=== PATIENT | male | born 1985 | race Caucasian/White ===

== ENCOUNTER 2023-05-26 17:25 | Emergency (ER) | payer SELFPAY ==
[2023-05-26 17:46] VITALS: BP 131/92; PULSE 102; RESP 18; TEMP 36.8; O2SAT 100
--- NOTE | 2023-05-26 19:24 | PC.NURSE ---
Patient stated to staff that he did not want to be seen anymore and proceeded to walk out to triage to call his father for a ride.
== END 2023-05-26 19:24 | disposition left against medical advice (07) ==
LOC: ANHED 19:30
DX: R07.81 Pleurodynia (principal)
CPT/HCPCS: 99199

== ENCOUNTER 2023-06-11 19:37 | Emergency (ER) | payer SELFPAY ==
[2023-06-11 19:48] VITALS: BP 146/116; PULSE 95; RESP 18; TEMP 36.3; O2SAT 100
--- NOTE | 2023-06-11 19:55 | PC.NURSE ---
Pt states he has had thought of self harm in the past 3 months, denies plan or intection to act. Denies giving away possessions or writing letter to family/friends. Discussed with ED charge, pt is Low-Risk level 1 on assessment. Pt is no harm to self at this time.
[2023-06-11 22:26] VITALS: BP 133/94; PULSE 80; RESP 16; TEMP 36.6; O2SAT 98
--- NOTE | 2023-06-11 22:26 | PC.NURSE ---
Patient states that he is a recovering addict and that he last used fentanyl a day and a half ago and ICE a month and a half ago
--- NOTE | 2023-06-11 22:28 | PC.NURSE ---
Patient states that he is hearing voices but denies the voices are telling him to hurt himself or others. Patient states the voices know what he is doing.
[2023-06-11 23:33] VITALS: BP 119/90; PULSE 95; RESP 16; O2SAT 98
--- NOTE | 2023-06-12 01:23 | ED.GENADULT ---
HPI - General Adult General Chief complaint: Unspecified Stated complaint: lice Time Seen by Provider: 06/12/23 00:09 Source: patient Mode of arrival: ambulatory Limitations: no limitations History of Present Illness HPI narrative: Patient is a 38-year-old male who presents the ED with concern for lice infestation. Patient is homeless. He reports he has been dealing with lice for the last couple weeks. He states the lice have began to invade into his ears bilaterally. He states he was seen at [facility] a couple of days ago and prescribed the shampoo. He was also Rx'd clindamycin for an ear infection. He states the shampoo took care of the lice in his hair, but he is still concerned for lice in his ears. He states he has been digging at his ears trying to remove the lice. Denies ear drainage. Denies fevers. Patient admits to using methamphetamines and fentanyl. Related Data Allergies Allergy/AdvReac Type Severity Reaction Status Date / Time No Known Allergies Allergy Unverified 12/21/16 00:59 Review of Systems Review of Systems: CONSTITUTIONAL: Denies fever, chills, or sweats. ENT: See HPI. CARDIOVASCULAR: Denies chest pain, palpitations, or edema. RESPIRATORY: Denies cough or dyspnea. GASTROINTESTINAL: Denies abdominal pain, nausea, vomiting. SKIN: See HPI MUSCULOSKELETAL: Denies back pain, joint pain, or myalgia. All systems reviewed & are unremarkable except as noted in HPI and below PMFSH Social History Social History Substance use type: opiates and methamphetamine Exam Narrative: GENERAL: Mildly unkempt/disheveled, thin, non-toxic, in no acute distress. HEAD: Normocephalic, atraumatic. ENT: R ear pinna with scattered scabs. Large wound to R antihelix/shelby with purulent material/crusting. No abscess. bilateral EACs significantly swollen and erythematous. Difficult to visualize either TM. no drainage from either EAC. Scattered scabs to nose and chin. NECK: Supple. No adenopathy, no masses. RESPIRATORY: Airway patent, respirations nonlabored. CARDIOVASCULAR: Regular rate and rhythm. MUSCULOSKELETAL: Moves all extremities. Strength/ROM intact without gross deformities. SKIN: Warm, dry, normal color. No rashes. NEURO: A&O X3. Speech clear. Cranial nerves II-XII grossly intact. Steady gait. No ataxic movements. PSYCHIATRIC: Paranoid. Normal interaction. Course Vital Signs Vital signs: Vital Signs Temperature 97.3 F L 06/11/23 19:48 Pulse Rate 95 06/11/23 19:48 Respiratory Rate 18 06/11/23 19:48 Blood Pressure 146/116 H 06/11/23 19:48 Pulse Oximetry 100 06/11/23 19:48 Oxygen Delivery Room Air 06/11/23 19:48 Temperature 97.8 F 06/11/23 22:26 Pulse Rate 100 06/12/23 01:49 Respiratory Rate 16 06/12/23 01:49 Blood Pressure 124/94 H 06/12/23 01:49 Pulse Oximetry 100 06/12/23 01:49 Oxygen Delivery Room Air 06/11/23 19:48 Medical Decision Making MDM Narrative Medical decision making narrative: Patient homeless, presented to ED with concern for lice infestation in ears. Recently utilized permethrin shampoo which he states cleared the lice from his hair. Also started on clindamycin from outside hospital. Exam consistent with bilateral otitis externa. Right ear with large purulent wound to shelby and antihelix from patient picking at ear. He does report history of methamphetamine abuse. advised patient to continue clindamycin that he was previously prescribed. Will prescribe ofloxacin ear drops for AOE. Will also provide patient with prescription for permethrin as he is adamant he needs to be treated for lice. Patient in agreement w/ plan. I offered the patient something to eat and offered homeless [facility] resources and patient agreed. upon telling patient we would be able to discharge him soon the patient stated, I haven't seen the psychiatrist yet. he proceeds
[2023-06-12 01:49] VITALS: BP 124/94; PULSE 100; RESP 16; O2SAT 100
[2023-06-12] MEDS: OFLOXACIN 0.3% OPHTH SOLN 5 ML BTL 3 DROP EACH EAR (02:10)
[2023-06-12 02:33] LABS: Appearance Urine Clear (Clear); Bilirubin Urine Negative (Negative); Blood Urine Negative (Negative); Color Urine Yellow (Yellow); Glucose Urine UA Negative (Negative); Ketones Urine Negative (Negative); Leukocyte Esterase Ur Negative LEU/UL (Negative); Nitrate Urine Negative (Negative); Protein Urine Negative (Negative); Specific Grav Ur 1.016 (1.001-1.035)
--- NOTE | 2023-06-12 02:36 | PC.NURSE ---
Patient moved into room 15
--- NOTE | 2023-06-12 02:37 | PC.NURSE ---
Attempted to obtain blood from patient with a 23 gauge butterfly needle. Attempt was unsuccessful.
[2023-06-12 02:49] LABS: Add Urine Microscopic? NO; Amphetamine Screen Urine Positive (Negative); Barbiturate Screen Urine Negative (Negative); Benzodiazepines Screen Urine Negative (Negative); Cannabinoid Screen Urine Negative (Negative); Cocaine Screen Urine Negative (Negative); Methadone Screen Urine Negative (Negative); Opiate Screen Urine Negative (Negative); Phencyclidine Screen Urine Negative (Negative)
--- NOTE | 2023-06-12 03:05 | PC.NURSE ---
Patient initially stated to the EDP NEFTALI Burgess that he was suicidal and wanted to hurt himself. EDP Jenifer then ordered blood, urine, and covid test. When it came time to obtain blood for the second attempt patient stated that he did not want to get stuck with needles. Patient was informed by nursing staff, EDP NEFTALI Burgess, and EDP Dr. Bailey that we need blood to get crisis here to evaluate him. Patient then told Dr. Bailey that he was not suicidal and just wanted usp and resource information.
[2023-06-12 03:06] LABS: SARS-CoV-2 RNA PCR Negative (Negative)
== END 2023-06-12 03:10 | disposition home or self-care (01) ==
PROVIDERS: Emergency Provider Physician Assistant
DX: H60.503 Unspecified acute noninfective otitis externa, bilateral (principal); Z59.00 Homelessness unspecified; F15.90 Other stimulant use, unspecified, uncomplicated; Z11.52 Encounter for screening for COVID-19
CPT/HCPCS: 80307; 81003; 87635; 99283; A9270

== ENCOUNTER 2023-07-18 16:41 | Emergency (ER) | payer SELFPAY | END 2023-07-18 17:04 | disposition left against medical advice (07) | PROVIDERS: Emergency Provider Emergency Medicine | DX: Z53.21 Procedure and treatment not carried out due to patient leaving prior to being seen by health care provider (principal) | CPT/HCPCS: 99199 ==

== ENCOUNTER 2023-07-29 14:32 | Emergency (ER) | payer SELFPAY ==
--- NOTE | ~2023-07-29 | CT_ITS ---
EXAMINATION: CT abdomen pelvis w con DATE: 07/29/2023 15:22 INDICATION: Right lower quadrant abdominal pain. TECHNIQUE: Computed tomography (CT) of the abdomen and pelvis was performed with 100 mL Omnipaque 350 intravenous contrast. Automated exposure control and iterative reconstruction technique were employe d. The dose-length product was 569.43 mGy-cm. COMPARISON: None. FINDINGS: The visualized portions of the lung bases are clear without pneumonia or pleural effusion. The heart size is normal. No pericardial effusion. There are cysts in the liver measuring up to 5 mm. The gallbladder is contracted. The spleen, pancreas, adrenal glands, and kidneys are normal. There i s a right inguinal hernia containing fat. There are no dilated loops of bowel. The appendix is normal . There are no pathologically enlarged lymph nodes. There is no free intraperitoneal fluid. There is a 2.7 cm nonaggressive lytic lesion in right femoral neck, likely benign. There is mild thoracic and lumbar spondylosis. IMPRESSION: 1. Right inguinal hernia containing fat. 2. 2.7 cm nonaggressive lytic lesion in right femoral neck, likely benign. The differential diagnosis includes subchondral cyst, synovial cyst, unicameral bone cyst, and fibrous dysplasia. Reviewed, dictated and finalized at location E. TIPPING MACHINE TENDER IMPRESSION: 1. Right inguinal hernia containing fat. 2. 2.7 cm nonaggressive lytic lesion in right femoral neck, likely benign. The differential diagnosis includes subchondral cyst, synovial cyst, unicameral bon e cyst, and fibrous dysplasia.
[2023-07-29 14:41] VITALS: BP 155/121; PULSE 125; RESP 20; TEMP 36.8; O2SAT 99
[2023-07-29 15:17] LABS: Estimated CRCL calculation 86 ml/min; Estimated Glomerular Filt Rate > 60
[2023-07-29 15:26] LABS: Basophils Percent Auto 0.2 % (0.2-1.2); Eosinophils Absolute Auto 0.1 K/mm3 (0-0.3); Eosinophils Percent Auto 1.1 % (0-4.4); Hematocrit 40.7 % (42.0-52.0); Hemoglobin 13.4 g/dL (14.0-18.0); Immature Granulocyte Absolute 0.03 K/mm3 (0.00-0.031); Immature Granulocyte Percent A 0.3 % (0-0.5); Lymphocytes Absolute Auto 1.19 K/mm3 (0.9-3.2); Lymphocytes Percent Auto 13.5 % (18.3-44.2); Mean Corpuscular HGB Conc 32.9 g/dl (32-36); Mean Corpuscular Hemoglobin 28.4 pg (26-34); Mean Corpuscular Volume 86.2 fl (80-100); Mean Platelet Volume 10.3 fl (7.4-10.4); Monocytes Absolute Auto 0.7 K/mm3 (0.1-0.6); Monocytes Percent Auto 8.2 % (2.6-8.5); Neutrophils Absolute Auto 6.7 K/mm3 (1.3-6.7); Neutrophils Percent Auto 76.7 % (45.5-73.1); Platelet Count Result 283 k/mm3 (150-375); Red Blood Count 4.72 M/mm3 (4.6-6.20); Red Cell Distribution Width 13.8 % (11.5-14.5); White Blood Count 8.8 K/mm3 (4.5-10.0)
[2023-07-29 15:37] LABS: Ethanol < 10 mg/dL (<10)
[2023-07-29 15:55] LABS: Alanine Aminotransferase 17 U/L (6-50); Albumin Level 4.1 g/dL (3.5-5.1); Alkaline Phosphatase 83 U/L (38-126); Anion Gap 6 mmol/L (8-16); Aspartate Amino Transferase 33 U/L (17-59); Bilirubin,Total 0.5 mg/dL (0.2-1.3); Blood Urea Nitrogen 17 mg/dL (9-20); Calcium 9.5 mg/dL (8.4-10.2); Carbon Dioxide 26 mmol/L (22-30); Chloride 108 mmol/L (98-107); Estimated CRCL calculation 95 ml/min; Estimated Glomerular Filt Rate > 60; Glucose 105 mg/dL (65-110); Potassium 4.2 mmol/L (3.4-5.0); Sodium 140 mmol/L (137-145)
[2023-07-29 15:55] LABS: Appearance Urine Turbid (Clear); Bacteria Urine None Seen /hpf; Bilirubin Urine Negative (Negative); Blood Urine Negative (Negative); Color Urine Yellow (Yellow); Glucose Urine UA Negative (Negative); Ketones Urine Negative (Negative); Leukocyte Esterase Ur Negative LEU/UL (Negative); Nitrate Urine Negative (Negative); Non Pathogenic Casts 0-2; Protein Urine Negative (Negative); RBC Urine 0-2 /hpf (0-2); Specific Grav Ur 1.021 (1.001-1.035); Squamous Epithelial Cell Urine None seen /hpf (Few); Urobilinogen Urine 0.2 mg/dL (<2.0); WBC Urine 0-5 /hpf
[2023-07-29] MEDS: SODIUM CHLORIDE 0.9% IV 1,000 ML 999 ML IV CONT (16:00)
--- NOTE | 2023-07-29 16:00 | PC.NURSE ---
pt resting quietly on stretcher. no distress noted. requested white soda. when drink provided pt inquired what time dinner is served.
[2023-07-29 16:05] LABS: Add Urine Microscopic? YES
[2023-07-29 16:23] LABS: Thyroid Stimulating Hormone 0.276 uIU/mL (0.465-4.680)
[2023-07-29 16:24] LABS: Amphetamine Screen Urine Negative (Negative); Barbiturate Screen Urine Negative (Negative); Benzodiazepines Screen Urine Negative (Negative); Cannabinoid Screen Urine Positive (Negative); Cocaine Screen Urine Negative (Negative); Methadone Screen Urine Negative (Negative); Opiate Screen Urine Negative (Negative); Phencyclidine Screen Urine Negative (Negative)
--- NOTE | 2023-07-29 16:24 | ED.GENADULT ---
HPI - General Adult General Chief complaint: Unspecified Stated complaint: hernia, paranoia Time Seen by Provider: 07/29/23 14:42 History of Present Illness HPI narrative: Patient is a 38-year-old male who presents ER with lower abdominal pain. Began this afternoon while he was [place] halfway [place] [employer]. He is concerned may be related to hernia he has. He reports normal bowel movement earlier today. No fevers or chills or sweats. No nausea or vomiting. Patient is very anxious. Denies any drug use. No SI/HI. Patient did arrive with a pocket knife but it has been taken by fleas. He is not in custody. Denies previous issues with abdominal pain. Related Data Allergies Allergy/AdvReac Type Severity Reaction Status Date / Time bee venom protein (honey bee) Allergy Unknown Verified 07/29/23 14:49 [bees] antipsychotics AdvReac Unknown Uncoded 07/29/23 14:49 Review of Systems Review of Systems: All systems reviewed & are unremarkable except as noted in HPI and below ENT: Reports system reviewed and no additional complaints, except as documented Cardiovascular: Cardiovascular: Reports no additional cardiovascular complaints Respiratory: Respiratory: Reports no additional respiratory complaints Gastrointestinal: Gastrointestinal: Reports abdominal pain, Denies constipation, Denies diarrhea and Denies nausea Genitourinary: Genitourinary: Reports no additional male genitourinary complaints PMFSH Past Medical History Medical History (Updated 07/29/23 @ 16:37 by Jerome Mendiola MD) Healthy adult male Surgical History Surgical History (Updated 07/29/23 @ 16:37 by Jerome Mendiola MD) No pertinent past surgical history Social History Social History Substance use type: opiates and methamphetamine Exam Narrative: GENERAL: Anxious-appearing, well-nourished, and in no acute distress. HEAD: Normocephalic, atraumatic. ENT: Mucous membranes moist. CHEST: Clear to auscultation. No respiratory distress. HEART: Regular rate and rhythm. Normal peripheral pulses. ABDOMEN: Soft, mildly tender right lower quadrant, nondistended, normal active bowel sounds. no bulging hernia. EXTREMITIES: Normal range of motion. No edema. SKIN: Warm, dry, no rash. NEURO: Alert and oriented x3. PSYCH: Normal mood and affect. no SI/HI. Course Course Emergency Course: Patient has urinated 900 mL. He is receiving some IV fluid. Pain improved. Informed of imaging results. No previous history of having a cyst on his femur that he is aware of, he has been educated about this. [place] appropriate for discharge home. Vital Signs Vital signs: Vital Signs Temperature 98.3 F 07/29/23 14:41 Pulse Rate 125 H 07/29/23 14:41 Respiratory Rate 20 07/29/23 14:41 Blood Pressure 155/121 H 07/29/23 14:41 Pulse Oximetry 99 07/29/23 14:41 Oxygen Delivery Room Air 07/29/23 14:41 Temperature 98.3 F 07/29/23 14:41 Pulse Rate 125 H 07/29/23 14:41 Respiratory Rate 20 07/29/23 14:41 Blood Pressure 155/121 H 07/29/23 14:41 Pulse Oximetry 99 07/29/23 14:41 Oxygen Delivery Room Air 07/29/23 14:41 Medical Decision Making Vital Signs Vital Signs: Vital Signs Temperature 98.3 F 07/29/23 14:41 Pulse Rate 125 H 07/29/23 14:41 Respiratory Rate 07/29/23 14:41 Blood Pressure 155/121 H 07/29/23 14:41 Pulse Oximetry 99 07/29/23 14:41 Oxygen Delivery Room Air 07/29/23 14:41 Temperature 98.3 F 07/29/23 14:41 Pulse Rate 125 H 07/29/23 14:41 Respiratory Rate 07/29/23 14:41 Blood Pressure 155/121 H 07/29/23 14:41 Pulse Oximetry 99 07/29/23 14:41 Oxygen Delivery Room Air 07/29/23 14:41 Lab Data 07/29/23 15:10 07/29/23 15:16 Labs: Lab Results 07/29/23 07/29/23 07/29/23 Range/Units 15:10 15:16 15:36 WBC 8.8 (4.5-10.0) K/mm3 R
[2023-07-29] MEDS: ACETAMINOPHEN 325 MG TABLET 650 MG (16:57)
== END 2023-07-29 16:50 | disposition home or self-care (01) ==
PROVIDERS: Emergency Provider Emergency Medicine
DX: R10.30 Lower abdominal pain, unspecified (principal); K40.90 Unilateral inguinal hernia, without obstruction or gangrene, not specified as recurrent; M89.9 Disorder of bone, unspecified
CPT/HCPCS: 74177; 80053; 80307; 81001; 84443; 85025; 96360; 99284; A9270; J7030; Q9967

== ENCOUNTER 2023-07-30 21:49 | Emergency (ER) | payer SELFPAY ==
[2023-07-30] MEDS: HALOPERIDOL LACTATE 5 MG/ML VIAL (21:53)
[2023-07-30] MEDS: LORazepam INJ (*CRX) 2 MG/ML VIAL (21:53)
[2023-07-30] MEDS: diphenhydrAMINE HCl INJ 50 MG/ML VIAL (21:53)
--- NOTE | 2023-07-30 21:55 | ED.GENADULT ---
HPI - General Adult General Chief complaint: Psychiatric Symptoms <Geo Kearns MD - Last Filed: 07/31/23 01:45> Stated complaint: etoh, combative <Geo Kearns MD - Last Filed: 07/31/23 01:45> Time Seen by Provider: 07/30/23 21:51 <Geo Kearns MD - Last Filed: 07/31/23 01:45> History of Present Illness HPI narrative: patient is a 38-year-old gentleman who presents emergency department with chief complaint of alcohol intoxication and needs medical clearance The patient was arrested due to intoxication the patient was mine bottles of fireball and stealing overall from other establishment and chugging it. <Geo Kearns MD - Last Filed: 07/31/23 01:45> Related Data Allergies/adverse reactions: Allergies Allergy/AdvReac Type Severity Reaction Status Date / Time bee venom protein (honey bee) Allergy Unknown Verified 07/29/23 14:49 [bees] antipsychotics AdvReac Unknown Uncoded 07/29/23 14:49 <Geo Kearns MD - Last Filed: 07/31/23 01:45> Review of Systems Review of Systems: A 10 system review of systems was completed on the patient and is negative except for what is stated in the HPI. Nursing and ancillary documentation was reviewed. <Geo Kearns MD - Last Filed: 07/31/23 01:45> PMFSH Past Medical History Medical History: Medical History Healthy adult male <Geo Kearns MD - Last Filed: 07/31/23 01:45> Surgical History Surgical History: Surgical History No pertinent past surgical history <Geo Kearns MD - Last Filed: 07/31/23 01:45> Social History Social History: Social History Substance use type: unknown <Geo Kearns MD - Last Filed: 07/31/23 01:45> Exam Narrative: GENERAL: Well-appearing, well-nourished, and in no acute distress. HEAD: Normocephalic, atraumatic. EYES: PERRLA and EOMI. ENT: Nares clear, no rhinorrhea or epistaxis. Mucous membranes moist. NECK: Supple. CHEST: Clear to auscultation. No respiratory distress. HEART: Regular rate and rhythm. No murmur heard. Normal peripheral pulses. ABDOMEN: Soft, nontender, nondistended, normal active bowel sounds. EXTREMITIES: Normal range of motion. No edema. SKIN: Warm, dry, no rash. NEURO: No focal deficits. Alert and oriented x3. highly intoxicated poorly cooperative PSYCH: Normal mood and affect. <Geo Kearns MD - Last Filed: 07/31/23 01:45> Course Course Emergency Course: Patient resting comfortably. He is awake alert and orient x3. He is refusing repeat lab testing. He is clinically sober. Will be discharged as he reports <Jerome Mendiola MD - Last Filed: 07/31/23 08:43> Vital Signs Vital signs: Vital Signs Temperature 97.2 F L 07/30/23 22:35 Pulse Rate 115 H 07/30/23 22:35 Respiratory Rate 18 07/30/23 22:35 Blood Pressure 127/72 07/30/23 22:35 Pulse Oximetry 95 07/30/23 22:35 Oxygen Delivery Room Air 07/30/23 22:35 Temperature 97.2 F L 07/30/23 22:35 Pulse Rate 102 H 07/30/23 23:51 Respiratory Rate 20 07/30/23 23:51 Blood Pressure 127/72 07/30/23 22:35 Pulse Oximetry 97 07/30/23 23:51 Oxygen Delivery Room Air 07/30/23 22:35 <Geo Kearns MD - Last Filed: 07/31/23 01:45> Vital Signs Temperature 97.2 F L 07/30/23 22:35 Pulse Rate 115 H 07/30/23 22:35 Respiratory Rate 18 07/30/23 22:35 Blood Pressure 127/72 07/30/23 22:35 Pulse Oximetry 95 07/30/23 22:35 Oxygen Delivery Room Air 07/30/23 22:35 Temperature 97.2 F L 07/30/23 22:35 Pulse Rate 102 H 07/30/23 23:51 Respiratory Rate 20 07/30/23 23:51 Blood Pressure 127/72 07/30/23 22:35 Pulse Oximetry 97 01
--- NOTE | 2023-07-30 22:01 | ECG_ITS ---
Measurements Intervals [place] Rate: 112 P: 78 CA: 110 QRS: 31 QRSD: 89 T: 65 QT: 336 QTc: 459 Interpretive Statements SINUS TACHYCARDIA WITH SHORT CA INTERVAL ST ELEVATION IN ANT/INF LEADS- PROBABLY EARLY REPOLARIZATION ABNORMAL ECG NO PREVIOUS ECG AVAILABLE FOR COMPARISON Electronically Signed On 07-31-2023 6:36:29 PHYSICAL THERAPY DIRECTOR by Roosevelt Gaffney D.O.
[2023-07-30 22:35] VITALS: BP 127/72; PULSE 115; RESP 18; TEMP 36.2; O2SAT 95
[2023-07-30 22:48] LABS: Basophils Percent Auto 0.5 % (0.2-1.2); Eosinophils Absolute Auto 0.2 K/mm3 (0-0.3); Eosinophils Percent Auto 1.9 % (0-4.4); Hematocrit 42.6 % (42.0-52.0); Hemoglobin 13.5 g/dL (14.0-18.0); Immature Granulocyte Absolute 0.06 K/mm3 (0.00-0.031); Immature Granulocyte Percent A 0.7 % (0-0.5); Lymphocytes Absolute Auto 2.28 K/mm3 (0.9-3.2); Lymphocytes Percent Auto 25.8 % (18.3-44.2); Mean Corpuscular HGB Conc 31.7 g/dl (32-36); Mean Corpuscular Hemoglobin 28.1 pg (26-34); Mean Corpuscular Volume 88.8 fl (80-100); Mean Platelet Volume 10.2 fl (7.4-10.4); Monocytes Absolute Auto 0.6 K/mm3 (0.1-0.6); Monocytes Percent Auto 7.2 % (2.6-8.5); Neutrophils Absolute Auto 5.7 K/mm3 (1.3-6.7); Neutrophils Percent Auto 63.9 % (45.5-73.1); Platelet Count Result 301 k/mm3 (150-375); Red Cell Distribution Width 13.9 % (11.5-14.5); White Blood Count 8.8 K/mm3 (4.5-10.0)
--- NOTE | 2023-07-30 22:49 | PC.NURSE ---
Upon arrival to ED, pt was belligerent and combative to PD/ hospital staff/ security/ and EMS. EDP Dr. Kearns educated pt about how to appropriately manage his behaviors. pt began yelling and screaming at staff/ Pd/ security. Pt then started to get into EDP Dr. Kearns's face stated I am the fucking boss of this shit, don't tell me what to do . Pt was in handcuffs upon arrival. Pt started to resist PD holding him down on cot. Pt then began to become more aggressive. EDP Dr. Kearns verbally ordered 5mg of halidol/ 2mg of ativan/ 50mg of benedryll IM for pt. This Rn confirmed route/ dose/ pt/ medications with edp Dr. Kearns using closed loop communication. EDP confirmed routes/ medications/ dosages/ and pt. EDP verbally ordered violent restraints. This RN educated pt the importance of acting appropriately for the safety of himself and staff members. Pt verbally confirmed and let this RN collect blood work/ urine sample/ nasal swab. Security staff members and PD were still at bedside. Pt was uncuffed and changed into green scrub top with his own personal bottoms. Pt denied HI/ SI multiple times to this RN. Pt denied anything hurting. Pt stated he was at [facility] due to drinking to much and then PD picked me up . This RN did not apply violent restraints to pt. After this RN completed EKG, pt began to rest with eyes closed with visible chest rise and fall.
[2023-07-30 22:50] LABS: Appearance Urine Clear (Clear); Bilirubin Urine Negative (Negative); Blood Urine Negative (Negative); Color Urine Yellow (Yellow); Glucose Urine UA Negative (Negative); Ketones Urine Negative (Negative); Leukocyte Esterase Ur Negative LEU/UL (Negative); Nitrate Urine Negative (Negative); Protein Urine Negative (Negative); Specific Grav Ur 1.005 (1.001-1.035); Urobilinogen Urine 0.2 mg/dL (<2.0); pH Urine 5.5 (5.0-9.0)
[2023-07-30 23:04] LABS: Add Urine Microscopic? NO; Alanine Aminotransferase 17 U/L (6-50); Albumin Level 4.3 g/dL (3.5-5.1); Alkaline Phosphatase 97 U/L (38-126); Anion Gap 14 mmol/L (8-16); Aspartate Amino Transferase 31 U/L (17-59); Bilirubin,Total 0.3 mg/dL (0.2-1.3); Blood Urea Nitrogen 15 mg/dL (9-20); Calcium 9.8 mg/dL (8.4-10.2); Carbon Dioxide 20 mmol/L (22-30); Chloride 110 mmol/L (98-107); Estimated CRCL calculation 87 ml/min; Estimated Glomerular Filt Rate > 60; Glucose 100 mg/dL (65-110); Potassium 3.4 mmol/L (3.4-5.0); Sodium 144 mmol/L (137-145)
[2023-07-30 23:14] LABS: Acetaminophen < 10 ug/mL (10-30); Salicylate < 1.0 mg/dL (2-20)
[2023-07-30 23:25] LABS: Ethanol 301 mg/dL (<10)
[2023-07-30 23:26] LABS: Influenza A QL RT-PCR Negative (Negative); Influenza B QL RT-PCR Negative (Negative); RSV RNA, RT-PCR Negative (Negative); SARS-CoV-2 RNA PCR Negative (Negative)
[2023-07-30 23:47] LABS: Amphetamine Screen Urine Negative (Negative); Barbiturate Screen Urine Negative (Negative); Benzodiazepines Screen Urine Negative (Negative); Cannabinoid Screen Urine Negative (Negative); Cocaine Screen Urine Negative (Negative); Methadone Screen Urine Negative (Negative); Opiate Screen Urine Negative (Negative); Phencyclidine Screen Urine Negative (Negative)
[2023-07-30 23:51] VITALS: PULSE 102; RESP 20; O2SAT 97
--- NOTE | 2023-07-31 07:34 | PC.NURSE ---
assumed care of pt. pt sleeping on stretcher, no distress noted at this time
[2023-07-31 08:54] VITALS: BP 142/93; PULSE 123; RESP 16; TEMP 36.8; O2SAT 99
--- NOTE | 2023-07-31 08:54 | PC.NURSE ---
color laboratory technician in room to draw repeat etoh level, pt refusing to have blood drawn. edp aware
[2023-07-31 09:06] VITALS: BP 142/93; PULSE 123; RESP 16; TEMP 36.8; O2SAT 99
== END 2023-07-31 09:17 | disposition home or self-care (01) ==
PROVIDERS: Emergency Provider Emergency Medicine
DX: F10.129 Alcohol abuse with intoxication, unspecified (principal); Y90.8 Blood alcohol level of 240 mg/100 ml or more; Z11.52 Encounter for screening for COVID-19
CPT/HCPCS: 36415; 80053; 80307; 81003; 84443; 85025; 87637; 93005; 96374; 96375; 99284; J1200; J1630; J2060

== ENCOUNTER 2023-08-08 20:59 | Emergency (ER) | payer SELFPAY ==
[2023-08-08 20:50] VITALS: BP 190/122; PULSE 134; RESP 20; TEMP 36.8; O2SAT 100
[2023-08-08 21:52] LABS: Basophils Percent Auto 0.6 % (0.2-1.2); Eosinophils Percent Auto 0.4 % (0-4.4); Hematocrit 47.9 % (42.0-52.0); Hemoglobin 15.3 g/dL (14.0-18.0); Immature Granulocyte Absolute 0.03 K/mm3 (0.00-0.031); Immature Granulocyte Percent A 0.4 % (0-0.5); Lymphocytes Absolute Auto 1.07 K/mm3 (0.9-3.2); Lymphocytes Percent Auto 14.7 % (18.3-44.2); Mean Corpuscular HGB Conc 31.9 g/dl (32-36); Mean Corpuscular Hemoglobin 27.9 pg (26-34); Mean Corpuscular Volume 87.4 fl (80-100); Mean Platelet Volume 9.4 fl (7.4-10.4); Monocytes Absolute Auto 0.6 K/mm3 (0.1-0.6); Monocytes Percent Auto 8.8 % (2.6-8.5); Neutrophils Absolute Auto 5.5 K/mm3 (1.3-6.7); Neutrophils Percent Auto 75.1 % (45.5-73.1); Platelet Count Result 328 k/mm3 (150-375); Red Blood Count 5.48 M/mm3 (4.6-6.20); Red Cell Distribution Width 14.2 % (11.5-14.5); White Blood Count 7.3 K/mm3 (4.5-10.0)
[2023-08-08 22:03] LABS: Ethanol 16 mg/dL (<10)
[2023-08-08] MEDS: LORazepam INJ (*CRX) 2 MG/ML VIAL 1 MG IM (22:15)
--- NOTE | 2023-08-08 23:16 | ED.GENADULT ---
HPI - General Adult General Chief complaint: Unspecified Stated complaint: stroke like s&s History of Present Illness HPI narrative: Patient is a 38-year-old gentleman who presents emergency department with chief complaint of high blood pressure and tachycardia. The patient reports that he took some ice today and is feeling as though his blood pressure is high and his heart rate side. Patient states that he has not used any methamphetamine denies suicidal or homicidal ideation. The patient reports no alcohol use today. Related Data Allergies Allergy/AdvReac Type Severity Reaction Status Date / Time bee venom protein (honey bee) Allergy Unknown Verified 07/29/23 14:49 [bees] antipsychotics AdvReac Unknown Uncoded 07/29/23 14:49 Review of Systems Review of Systems: A 10 system review of systems was completed on the patient and is negative except for what is stated in the HPI. Nursing and ancillary documentation was reviewed. [facility] Past Medical History Medical History Healthy adult male Surgical History Surgical History No pertinent past surgical history Social History Social History Substance use type: unknown Exam Narrative: GENERAL: Well-appearing, well-nourished, and in no acute distress. HEAD: Normocephalic, atraumatic. EYES: PERRLA and EOMI. ENT: Nares clear, no rhinorrhea or epistaxis. Mucous membranes moist. NECK: Supple. CHEST: Clear to auscultation. No respiratory distress. HEART: Tachycardic rate and rhythm. No murmur heard. Normal peripheral pulses. ABDOMEN: Soft, nontender, nondistended, normal active bowel sounds. EXTREMITIES: Normal range of motion. No edema. SKIN: Warm, dry, no rash. NEURO: No focal deficits. Alert and oriented x3. PSYCH: Anxious mood and affect. Denies suicidal or homicidal ideation Course Vital Signs Vital signs: Vital Signs Temperature 36.8 C 08/08/23 20:50 Pulse Rate 134 H 08/08/23 20:50 Respiratory Rate 20 08/08/23 20:50 Blood Pressure 190/122 H 08/08/23 20:50 Pulse Oximetry 100 08/08/23 20:50 Oxygen Delivery Room Air 08/08/23 20:50 Temperature 36.8 C 08/08/23 20:50 Pulse Rate 134 H 08/08/23 20:50 Respiratory Rate 20 08/08/23 20:50 Blood Pressure 190/122 H 08/08/23 20:50 Pulse Oximetry 08/08/23 20:50 Oxygen Delivery Room Air 08/08/23 20:50 Medical Decision Making MDM Narrative Medical decision making narrative: Patient received a dose of Ativan in the emergency department is alert oriented and laboratory studies were ordered on the patient. While waiting for the laboratory studies the patient decided that he was feeling better and would like to leave the patient is currently alert oriented not suicidal or not homicidal walking with Ez clearance steady gait Vital Signs Vital Signs: Vital Signs Temperature 36.8 C 08/08/23 20:50 Pulse Rate 134 H 08/08/23 20:50 Respiratory Rate 20 08/08/23 20:50 Blood Pressure 190/122 H 08/08/23 20:50 Pulse Oximetry 08/08/23 20:50 Oxygen Delivery Room Air 08/08/23 20:50 Temperature 36.8 C 08/08/23 20:50 Pulse Rate 134 H 08/08/23 20:50 Respiratory Rate 20 08/08/23 20:50 Blood Pressure 190/122 H 08/08/23 20:50 Pulse Oximetry 08/08/23 20:50 Oxygen Delivery Room Air 08/08/23 20:50 Lab Data 08/08/23 21:44 08/08/23 21:44 Labs: Lab Results 08/08/23 08/08/23 08/08/23 Range/Units 21:44 21:44 21:44 WBC 7.3 (4.5-10.0) K/mm3 RBC 5.48 (4.6-6.20) M/mm3 Hgb 15.3 (14.0-18.0) g/dL Hct 47.9 (42.0-52.0) % MCV 87.4 (80-100) fl MCH 27.9 (26-34) pg MCHC 31.9 L (32-36) g/dl RDW 14.2 (11.5-14.5) % Plt Count 328 (150-375) k/mm3 MPV 9.4 (7.4-10.4) fl Im
== END 2023-08-08 23:17 | disposition left against medical advice (07) ==
LOC: ANHED 21:36
PROVIDERS: Emergency Provider Emergency Medicine
DX: F15.10 Other stimulant abuse, uncomplicated (principal)
CPT/HCPCS: 36415; 80053; 80307; 82550; 85025; 96372; 99283; J2060

== ENCOUNTER 2023-08-20 08:48 | Emergency (ER) | payer SELFPAY ==
[2023-08-20 08:41] VITALS: BP 172/104; PULSE 109; RESP 14; TEMP 36.9; O2SAT 100
--- NOTE | 2023-08-20 09:17 | ED.EYEPROB ---
HPI - Eye Problem General Chief complaint: Eye Problems Stated complaint: right eye swelling Time Seen by Provider: 08/20/23 08:55 Source: patient and old records reviewed Mode of arrival: ambulatory Limitations: no limitations History of Present Illness HPI Narrative: Patient is a 38-year-old male, with pmh of homelessness, psychiatric illness, and polysubstance abuse, who presents to the ED with c/o trent eye redness/drainage. Patient reports he woke up with morning with trent eye redness, drainage, FB sensation, worse on the R eye. Has developed some swelling of R eyelid. Reports slight blurry vision in his right eye due to the drainage. Denies vision loss. Denies severe pain or pain with eye movements. Patient has been seen in our ED previously and concerned for lice infestation. He states he feels as though a louse is in his R eye. Related Data Allergies Allergy/AdvReac Type Severity Reaction Status Date / Time bee venom protein (honey bee) Allergy Anaphylaxis Verified 08/20/23 08:54 [bees] haloperidol [From Haldol] Allergy Unknown Verified 08/20/23 08:54 Review of Systems Review of Systems: CONSTITUTIONAL: Denies fever, chills, or sweats. ENT: See HPI. NEUROLOGIC: Denies headache, dizziness, numbness, or weakness. All systems reviewed & are unremarkable except as noted in HPI and below Exam Narrative: GENERAL: Disheveled appearing, well-nourished, in no acute distress. HEAD: Normocephalic, atraumatic. EYES: Trent conjunctival injection, minimal on L, worse on R. R eye with serous and yellow drainage, mild swelling of eyelids. Some crusting present. R eye sclera with very mild chemosis. No subconjunctival hemorrhage. No FB noted. Pupils are equal and reactive to light. Patient eating cheetos in ED bed and frequently touching eyes. RESPIRATORY: Airway patent, respirations nonlabored CARDIOVASCULAR: Regular rate and rhythm MUSCULOSKELETAL: Moves all extremities. No gross deformities. SKIN: Warm, dry, normal color. NEURO: A&O X3. Speech clear. PSYCHIATRIC: Appropriate mood and affect. Normal interaction. Course Vital Signs Vital signs: Vital Signs Temperature 98.5 F 08/20/23 08:41 Pulse Rate 109 H 08/20/23 08:41 Respiratory Rate 14 08/20/23 08:41 Blood Pressure 172/104 H 08/20/23 08:41 Pulse Oximetry 100 08/20/23 08:41 Oxygen Delivery Room Air 08/20/23 08:41 Temperature 97.8 F 08/20/23 09:47 Pulse Rate 112 H 08/20/23 09:47 Respiratory Rate 14 08/20/23 09:47 Blood Pressure 152/97 H 08/20/23 09:47 Pulse Oximetry 100 08/20/23 09:47 Oxygen Delivery Room Air 08/20/23 08:41 MDM - Eye Problem MDM Narrative Medical decision making narrative: Exam consistent with bilateral conjunctivitis, likely bacterial, worse on right eye. Fluorescein staining and Wood's lamp examination did not reveal any conjunctival or corneal abrasions, no foreign bodies noted on exam. Pupils are reactive and equal bilaterally. No vision loss or significant vision changes. No other neurologic deficits. Patient will be started on ofloxacin eye drops, given 1st dose in the ED. Advised to avoid rubbing or touching eyes. Given ophthalmology information for follow-up. Given return precautions. Discharged in stable condition. Medical Records Attestation: I reviewed the patient's medical records. Discharge Plan Discharge Clinical Impression: Conjunctivitis Qualifiers: Conjunctivitis type: acute Acute conjunctivitis type: bacterial Laterality: bilateral Qualified Code(s): H10.33 - Unspecified acute conjunctivitis, bilateral Patient Disposition: Home, Self-Care Condition: Stable Instructions: Antibiotic Form, Eye Foreign Body (ED), Conjunctivitis (ED) Additional Instructions: Utilize antibiotic eyedrops as prescribed. Avoid touching, rubbing, or putting anything into eye. You may apply warm compresses to face/eyes. Follow-up with eye doctor for further evaluation. Prescriptions: N
[2023-08-20 09:38] VITALS: BP 152/97; PULSE 112; RESP 14; TEMP 36.6; O2SAT 100
[2023-08-20] MEDS: OFLOXACIN 0.3% OPHTH SOLN 5 ML BTL 1 DROP EACH EYE (09:43)
[2023-08-20 09:47] VITALS: BP 152/97; PULSE 112; RESP 14; TEMP 36.6; O2SAT 100
== END 2023-08-20 09:49 | disposition home or self-care (01) ==
LOC: ANHED 09:24
PROVIDERS: Emergency Provider Physician Assistant
DX: H10.33 Unspecified acute conjunctivitis, bilateral (principal)
CPT/HCPCS: 99283; A9270

== ENCOUNTER 2023-09-10 20:19 | Emergency (ER) | payer MEDICAID, SELFPAY ==
--- NOTE | ~2023-09-10 | XR_ITS ---
EXAMINATION: XR elbow RT min 3V DATE: 09/10/2023 22:13 INDICATION: Right elbow pain. TECHNIQUE: 4 views of right elbow were obtained. COMPARISON: Right forearm radiographs 09/19/2004 FINDINGS: Bone alignment is normal. No fracture. There is mild elbow joint osteoarthritis. No elbow j oint effusion. IMPRESSION: 1. Mild elbow joint osteoarthritis. Reviewed, dictated and finalized at location [facility]. [facility] [employer]
[2023-09-10 20:31] VITALS: BP 149/108; PULSE 93; RESP 18; TEMP 36.8; O2SAT 100
--- NOTE | 2023-09-10 21:18 | PC.NURSE ---
Pt asking [employer] intern[employer] how much longer will it be as he is in a lot of pain. RN explained that there are no current open beds but that they would get him back as soon as possible. Pt observed wheeling the wheel chair back to the other end of waiting room using bilateral arms to wheel.
--- NOTE | 2023-09-10 21:23 | PC.NURSE ---
Pt observed taking a white pill from a visitor of another patient. Unknown what pill was.
--- NOTE | 2023-09-10 21:35 | PC.NURSE ---
Visitor showed security bottle that she gave pt a pill from and it was tizanidine.
[2023-09-10] MEDS: IBUPROFEN 400 MG TABLET 800 MG PO (22:12)
[2023-09-10] MEDS: ACETAMINOPHEN 500 MG TABLET 1000 MG PO (22:13)
--- NOTE | 2023-09-10 22:18 | ED.GENADULT ---
HPI - General Adult General Chief complaint: Extremity Injury, Upper Stated complaint: rt arm pain Time Seen by Provider: 09/10/23 21:52 History of Present Illness HPI narrative: This is a 38-year-old male presenting ED with chief complaint right arm pain. Patient says he was arm wrestling while in [facility] earlier today and developed pain in his right tricep. He has not taken anything for pain. Says he has shooting pains into his hand. No other complaints. Related Data Allergies Allergy/AdvReac Type Severity Reaction Status Date / Time bee venom protein (honey bee) Allergy Unknown Verified 09/10/23 21:42 [bees] antipsychotics AdvReac Unknown Uncoded 07/29/23 14:49 PMFSH Past Medical History Medical History Healthy adult male Surgical History Surgical History No pertinent past surgical history Social History Social History Substance use type: unknown Exam Narrative: APPEARANCE: No apparent distress. Head: atraumatic. EYES: EOMI, NOSE: Atraumatic NECK: Trachea midline RESPIRATORY: No increased rate of breathing CARDIOVASCULAR: RRR, ABDOMINAL: Reducible right inguinal hernia MUSCULOSKELETAl: Focal exam revealed no obvious injuries to the elbow. No pain with active passive range of motion. NEURO: Alert. Moving 4/4 extremities SKIN:: Warm, dry. Normal color PSYCHIATRIC: Normal affect Course Vital Signs Vital signs: Vital Signs Temperature 98.2 F 09/10/23 20:31 Pulse Rate 93 09/10/23 20:31 Respiratory Rate 18 09/10/23 20:31 Blood Pressure 149/108 H 09/10/23 20:31 Pulse Oximetry 100 09/10/23 20:31 Oxygen Delivery Room Air 09/10/23 20:31 Temperature 98.2 F 09/10/23 20:31 Pulse Rate 93 09/10/23 20:31 Respiratory Rate 18 09/10/23 20:31 Blood Pressure 149/108 H 09/10/23 20:31 Pulse Oximetry 100 09/10/23 20:31 Oxygen Delivery Room Air 09/10/23 20:31 Medical Decision Making MDM Narrative Medical decision making narrative: -Course: 38-year-old male presenting with right arm pain. X-ray negative. Treated w/ Motrin Tylenol and discharged. -DDX includes but is not limited to: Soft tissue injury, bony injury -Interventions: Motrin Tylenol -Shared decision making / Disposition: Discharge -RX Motrin Tylenol Vital Signs Vital Signs: Vital Signs Temperature 98.2 F 09/10/23 20:31 Pulse Rate 93 09/10/23 20:31 Respiratory Rate 18 09/10/23 20:31 Blood Pressure 149/108 H 09/10/23 20:31 Pulse Oximetry 100 09/10/23 20:31 Oxygen Delivery Room Air 09/10/23 20:31 Temperature 98.2 F 09/10/23 20:31 Pulse Rate 93 09/10/23 20:31 Respiratory Rate 18 09/10/23 20:31 Blood Pressure 149/108 H 09/10/23 20:31 Pulse Oximetry 100 09/10/23 20:31 Oxygen Delivery Room Air 09/10/23 20:31 Discharge Plan Discharge Clinical Impression: Elbow pain Patient Disposition: Home, Self-Care Condition: Stable Instructions: Antibiotic Form, Elbow Strain (ED) Additional Instructions: Take Motrin Tylenol for pain. Follow-up with primary Prescriptions: New ibuprofen 800 mg tablet 800 mg PO TID PRN (Reason: pain) 7 Days Qty: 21 0RF acetaminophen 500 mg tablet 1,000 mg PO TID PRN (Reason: desire) 7 Days Qty: 42 0RF No Action permethrin 1 % liquid 60 ml topical ONCE Qty: 59 0RF Rx Instructions: may repeat treatment 7 days after first treatment if live lice remain ofloxacin 0.3 % drops 10 drp EACH EAR DAILY 7 Days Qty: 5 0RF Follow-up/Referrals: UNKNOWN,DOCTOR [Primary Care Provider] -
== END 2023-09-10 22:44 | disposition home or self-care (01) ==
LOC: ANHED 22:36
PROVIDERS: Emergency Provider Emergency Medicine
DX: M25.521 Pain in right elbow (principal)
CPT/HCPCS: 73080; 99283; A9270

== ENCOUNTER 2023-09-12 14:09 | Emergency (ER) | payer MEDICAID, SELFPAY ==
[2023-09-12] VITALS (11 sets, daily range): BP systolic 105–153; BP diastolic 77–102; PULSE 92–137; RESP 11–22; O2SAT 94–100
--- NOTE | 2023-09-12 14:27 | ED.OVERDOSE ---
HPI - Overdose General Chief Complaint: Overdose Stated Complaint: OD Source: patient and EMS Mode of arrival: EMS Limitations: no limitations History of Present Illness HPI Narrative: 38-year-old male presenting for acute opiate overdose. EMS called for unresponsive male lying on the ground outside and found him with cyanotic lips, shallow respirations. Gave him Narcan intranasal and IV after placing an IV. After getting IV Narcan, patient returned to baseline mental status, respirations return to normal. At this point he has no complaints other than he wants some resources for his drug abuse. He was recently in [facility] and was on Suboxone for a long time but is no longer on it. He is trying to get some Suboxone and then ended up just getting some opiates which she started. Currently asymptomatic. was not trying to hurt himself Related Data Home Medications Medication Instructions Recorded Confirmed No Home Medications 09/12/23 09/12/23 Allergies Allergy/AdvReac Type Severity Reaction Status Date / Time bee venom protein (honey bee) Allergy Unknown Verified 09/12/23 14:30 [bees] haloperidol [From Haldol] AdvReac Unknown Verified 09/12/23 14:30 antipsychotics AdvReac Unknown Uncoded 09/12/23 14:30 Review of Systems Review of Systems: All systems reviewed & are unremarkable except as noted in HPI and below PMFSH Past Medical History Medical History Healthy adult male Surgical History Surgical History No pertinent past surgical history Social History Social History Substance use type: unknown Exam Narrative: Constitutional: Generally well appearing, no acute distress Head: Atraumatic, no deformities. Eyes: Pupils equal, round, and reactive to light. Neck: Supple, no tracheal deviation, no JVD. ENMT: Mucous membranes moist Cardiovascular: S1, S2 auscultated. No murmurs, rubs, or gallops. No S3/S4. Normal Distal pulses. No peripheral edema. Respiratory: Lung sounds equal. No wheezes, rales, or rhonchi. Gastrointestinal: Abdomen was soft and non-tender. Non-distended. No rebound or guarding. Genitourinary: Deferred Musculoskeletal: Normal muscle tone and bulk. No obvious deformities or tenderness over extremities. Skin: No rashes. Neurological: Strength 5/5 in extremities. Cranial nerves I-XII grossly intact. Distal sensation intact. Mental Status: Awake, alert and oriented x3. Follows commands Course Vital Signs Vital signs: Vital Signs Pulse Rate 106 H 09/12/23 14:19 Respiratory Rate 17 09/12/23 14:19 Blood Pressure 153/102 H 09/12/23 14:19 Pulse Oximetry 98 09/12/23 14:19 Oxygen Delivery Room Air 09/12/23 14:19 Pulse Rate 97 09/12/23 15:30 Respiratory Rate 16 09/12/23 15:30 Blood Pressure 105/77 09/12/23 15:27 Pulse Oximetry 97 09/12/23 15:27 Oxygen Delivery Room Air 09/12/23 14:25 MDM - Overdose MDM Narrative Medical decision making narrative: 38-year-old male presenting for opiate overdose. Was found unconscious on the sidewalk. No obvious trauma. EMS gave Narcan which brought him back to baseline mental status. He admits to using opiates today. exam is nonfocal. Will keep in the emergency department to observed to ensure he does not return to overdose status and discharge home. patient observed in emergency department for 90 minutes. No signs of further overdose. Will discharge at this point. Pt feeling improved and would like to go home at this point. Return precautions were given to the patient include any new or worsening symptoms or development of and not limited to any chest pain, shortness of breath, lightheadedness, abdominal pain, fevers, chills. Patient understands and agrees. They are to follow-up with her PCP. All questions were answered. I rev
--- NOTE | 2023-09-12 16:04 | PC.NURSE ---
EJ removed at this time. Pressure dressing applied and continued to monitor pt.
== END 2023-09-12 16:37 | disposition home or self-care (01) ==
PROVIDERS: Emergency Provider Emergency Medicine
DX: T40.601A Poisoning by unspecified narcotics, accidental (unintentional), initial encounter (principal)
CPT/HCPCS: 99281